=== PATIENT | male | born 1990 | race Caucasian/White ===

== ENCOUNTER 2023-12-18 10:05 | Emergency (ER) | payer SELFPAY ==
[2023-12-18 10:07] VITALS: BP 131/84
--- NOTE | 2023-12-18 10:49 | ED.GENMED ---
History of Present Illness
General
Chief Complaint: Skin Surface Trauma
Source: patient
Exam Limitations: none
Time Seen by Provider: 12/18/23 10:21
Nursing documentation reviewed up to this point in time: agreed with
Travel History
Have you had any contact with someone who has COVID-19?: No
Do you have any symptoms of coronavirus? Fever > 100 degrees, chills, cough, shortness of breath, sore throat, loss of taste or smell, muscle aches, or headache?: No
History of Present Illness
History of Present Illness:
33-year-old male past medical history of asthma presenting to the emergency department today with concerns of left ring finger laceration that occurred at work while using a miter saw. He claims that he cut the nailbed denies additional concerns he
claims that his tetanus shot is up-to-date.
Review of Systems
Review of Systems
Allergies reviewed?: Yes
All Other Systems: ROS reviewed and negative except as documented in HPI and ROS
Phy Exam
Physical Exam
Physical Exam:
GENERAL: Alert , in no apparent distress
EYE: pupils equal and reactive
NECK: Supple, no significant adenopathy.
ENT: o/p clr, mmm.
CARDIAC: Regular rate and rhythm .
LUNGS: Clear breath sounds bilaterally, no acute respiratory distress, no wheezes/rales/rhonchi
ABDOMEN: Soft, without focal tenderness, no r/g, no cvat
NEUROLOGICAL: Alert and oriented, no focal neuro deficits
SKIN: Laceration directly through the mid left ring finger nail roughly 2 cm in length no obvious foreign bodies explored to its base. Warm and dry, skin intact.
MUSCULOSKELETAL: No edema, well perfused.
PSYCH: Normal and appropriate interaction.
Course
Orders/Labs/Results
Orders:
Orders
12/18/23 10:40
Finger(s)/Thumb 2 View Lt [CR Finger(s)/thumb Min 2 Vw Lt] Urgent
Comment:
Reason For Exam: laceration with saw
12/18/23 10:59
CeFAZolin 1 GRAM [Ancef] 1 gram in 5 ml IV NOW
12/18/23 11:19
CeFAZolin 2 GRAM [Ancef] 2 grams in 10 ml IV NOW
Vital Signs
Initial and Last Documented VS:
Initial Vital Signs
Temp Pulse Resp BP Pulse Ox
98.2 F 72 16 131/84 97
12/18/23 10:07 12/18/23 10:07 12/18/23 10:07 12/18/23 10:07 12/18/23 10:07
Last Documented Vital Signs
Temp Pulse Resp BP Pulse Ox
98.2 F 72 16 131/84 97
12/18/23 10:07 12/18/23 10:07 12/18/23 10:07 12/18/23 10:07 12/18/23 10:07
Procedures
Laceration Closure
Left Distal Dorsal Fourth Finger:
Status of Wound: clean
Size of Wound in cm: 2.5
Description of Wound Edges: sharp
Preparation: cleaned with saline
Anesthesia: 1% Lidocaine and Digital-Regional
Revision/Debridement: routine- no revision and irrigate-direct pressure
Wound exploration: explored to base- no FB and no tendon involvement
Type of Closure: single layer closure
Skin Closure Material: 4-0 chromic gut
Number of sutures: 5
MDM/Problems Addressed
MDM/Problems Addressed:
33-year-old male presenting to the emergency department today with concerns of laceration to the from a miter saw at work prior to arrival. Lacerations directly through the nailbed and nail. Area was thoroughly cleaned patient started on Ancef as
he was also found to have a fracture therefore open fracture Case was discussed with hand surgery that recommended closure and close outpatient follow-up. Return precautions given. Patient is up-to-date with his tetanus shot.
*Critical Care Note
Total Time (30-74mins, 75-104mins- exclusive of procedures): Not Applicable
ED Attending Note
-
Portions of this chart may have been created with voice recognition software.� Occasional wrong word or��sound alike� substitutions may have occurred due to the inherent limitations of voice recognition software.
Discharge Plan
Departure
Patient Disposition: Home (Routine Discharge)
Date of Disposition: 12/18/23
Time of Disposition: 12:20
Patient with high blood pressure during this ER visit?: No
Condition: Good
Covid-19: Not Applicable
Discharge Problem:
Finger laceration, Fracture of distal phalanx of finger, open
Instructions: Wound Care (DC), Laceration Repair With Stitches (DC), Finger Fracture ED
Prescriptions:
New
cephalexin 500 mg capsule
500 mg PO Q8H 3 Days Qty: 9 0RF
Referrals:
Sreedhar Calle DO [Family Provider] -
Nilson Sánchez MD [Active] - Follow up in 2-3 days
Activity Restrictions/Additional Instructions:
You came to the emergency department today with concerns of a fingertip fracture and laceration. This was closed with 5 absorbable sutures and cleaned thoroughly. Please take Keflex 3 times daily for the next 3 days and follow-up closely with
orthopedics for further management. Return to the emergency department for any worsening, new or concerning symptoms.
Interventions
Interventions:
*General Assessment Last Done: 12/18/23 10:07
*ED COVID-19 Vaccine History Last Done: 12/18/23 10:07
ED-Skin Assessment Last Done: 12/18/23 11:49
Discharge Date and Time
Print Language: FIJIAN
[2023-12-18 11:19] VITALS: BMI 26.7
[2023-12-18] MEDS: ANCEF 10 IV (11:34)
== END 2023-12-18 12:37 | disposition home or self-care (01) ==
LOC: EMR 10:05
PROVIDERS: EMERGENCY PHYSICIAN Emergency Medicine; FAMILY PHYSICIAN Family Medicine
DX: S62.635B Displaced fracture of distal phalanx of left ring finger, initial encounter for open fracture (principal); W27.0XXA Contact with workbench tool, initial encounter; Y99.0 Civilian activity done for income or pay; J45.909 Unspecified asthma, uncomplicated
CPT/HCPCS: 99284; 96374; 12001; 73140